=== PATIENT | male | born 1990 | race Caucasian/White ===

== ENCOUNTER 2019-05-03 17:59 | Inpatient (IN) | payer OTHER, MEDICAID ==
[2019-05-03] MEDS ORDERED: ACETAMINOPHEN 650MG/RECT SUPP PR ONE (18:12)
[2019-05-03] MEDS ORDERED: NA CHLORIDE 0.9% 1,000 ML ONE (18:12)
[2019-05-03] MEDS ORDERED: PIPER/TAZO/NS 3.375gm 3.375 GM/100 ML BAG ONE (18:25)
[2019-05-03] MEDS ORDERED: LEVALBUTEROL 1.25 MG/3 ML NEB ONE (18:25)
[2019-05-03] MEDS ORDERED: IPRATROPIUM BROM 0.5MG/2.5ML ONE (18:25)
[2019-05-03] MEDS ORDERED: VANCOMYCIN 750 MG in NA CHLORIDE 0.9% 150 ML IVPB ONE (18:30)
[2019-05-03 18:34] LABS: Arterial Blood Carboxyhemoglob 0.6 % (0-1.5); Blood Gas Oxyhemoglobin 97.7 % (94-97); Blood O2 Saturation 99.3 % (92-98.5)
[2019-05-03 18:37] LABS: Absolute Lymphocytes (CBC) 1.4 K/uL (0.7-4.9); Basophils % 0.1 % (0-1.3); Hematocrit 39.5 % (39.6-49.0); Lymphocytes % 9.1 % (15.3-44.8); MPV 9.8 fL (7.6-11.3); RBC Red Blood Cell Count 4.57 M/uL (4.33-5.43)
[2019-05-03 18:46] LABS: Protime INR 1.55
[2019-05-03 19:09] LABS: ALT/SGPT 18 U/L (12-78); AST/SGOT 44 U/L (15-37); Albumin 2.1 g/dL (3.4-5.0); Alkaline Phosphatase 148 U/L (45-117); BUN Blood Urea Nitrogen 16 mg/dL (7-18); Bicarbonate 29 mmol/L (21-32); Bilirubin Direct 0.3 mg/dL (0-0.2); Bilirubin Total 0.7 mg/dL (0.2-1.0); CKMB Creatine Kinase MB < 1.0 ng/mL (0.3-3.6); Creatine Phosphokinase 89 U/L (39-308); Glucose Level 227 mg/dL (74-106); Lipase 919 U/L (73-393); Magnesium 2.6 mg/dL (1.8-2.4); NT PRO-BNP 614 pg/mL (<125); Phenytoin (Dilantin) Level 19.1 ug/mL (10.0-20.0); Potassium 3.3 mmol/L (3.5-5.1); Protein, Total 7.6 g/dL (6.4-8.2); Sodium Level 153 mmol/L (136-145); Troponin (Emerg Dept Use Only) < 0.02 ng/mL (0.0-0.045)
--- NOTE | 2019-05-03 19:31 | RAD REPORT ---
EXAM DESCRIPTION: CT - Thorax Wo Con - 05/03/2019 7:19 pm CLINICAL HISTORY: sob COMPARISON: December 30 TECHNIQUE: Computed axial tomography of the chest was obtained. Contrast was not requested. All CT scans are performed using dose optimization technique as appropriate and may include automated exposure control or mA/KV adjustment according to patient size. FINDINGS: The evaluation of mediastinum, kenneth and vessels is limited secondary to lack of IV contras t administration. A large left pleural effusion this present with passive left atelectasis. Minimal ground-glass opacity right lung Marked scoliosis. Sullivan rods have been placed. Artifact from the rods result in surrounding luis antonio fact IMPRESSION: Very large left pleural effusion
--- NOTE | 2019-05-03 19:33 | RAD REPORT ---
EXAM DESCRIPTION: Alanna Single View05/03/2019 6:31 pm CLINICAL HISTORY: Shortness of breath COMPARISON: 2014 FINDINGS: Complete opacification left hemithorax Right lung appears clear of acute infiltrate. Marked scoliosis. Sullivan rods have been placed IMPRESSION: Complete opacification of the left hemithorax consistent with very large left pleural e ffusion and passive left lung atelectasis
[2019-05-03 19:42] LABS: Urine Blood NEGATIVE (NEG); Urine Glucose NEGATIVE (NEG); Urine Protein 2+ (NEG); Urine Specific Gravity 1.025 (1.005-1.030)
[2019-05-03 19:49] LABS: Urine Amorphous Sediment 1+ /HPF (NONE SEEN); Urine Bacteria 20-50 /HPF (NONE SEEN); Urine Culture Reflex Order REFLEXED; Urine Mucus 4+ /HPF (NONE SEEN); Urine RBC <5 /HPF (NONE SEEN)
--- NOTE | 2019-05-03 19:59 | EDPHYS ---
Physician Documentation [facility] Name: Gabriel Dhillon Age: 28 yrs Sex: Male : 1990 Arrival Date: 05/03/2019 Time: 18:00 Bed 3 Private MD: ED Physician Ron Evans HPI: 05/03 18:16 This 28 yrs old Male presents to ER via Carried with complaints of Fever, tracee Breathing Difficulty. 18:16 The patient reports fever, that was measured at 103.8 degrees Fahrenheit. Onset: The tracee symptoms/episode began/occurred 2 day(s) ago. Modifying factors: there are no obvious modifying factors. Associated signs and symptoms: Pertinent positives: chills, cough, sinus congestion. Severity of symptoms: At their worst the symptoms were. The patient has experienced similar episodes in the past, several times. Historical: - Allergies: 18:07 No Known Allergies; tw2 - PSHx: 18:07 spleen removed; rods in back; back sugery; tw2 - Immunization history:: Adult Immunizations up to date. - Social history:: Smoking status: Patient/guardian denies using tobacco. - Ebola Screening: : No symptoms or risks identified at this time. ROS: 18:18 Constitutional: Positive for body aches, chills, fatigue. tracee 18:18 Cardiovascular: Positive for palpitations. 18:18 Respiratory: Positive for cough, dyspnea on exertion, shortness of breath, at rest. 18:18 Abdomen/GI: Negative for abdominal pain. 18:18 MS/extremity: Positive for decreased range of motion, contracted. 18:18 Neuro: Positive for altered mental status. Exam: 18:18 Head/Face: Normocephalic, atraumatic. Chest/axilla: Normal chest wall appearance and tracee motion. Nontender with no deformity. No lesions are appreciated. 18:18 Cardiovascular: Rate: tachycardic, Rhythm: regular, Pulses: Pulses are 4+ in bilateral radial, brachial, femoral, popliteal, posterior tibial and and dorsalis pedis arteries.. Heart sounds: normal, Edema: is not appreciated, JVD: is not appreciated. 18:18 Respiratory: moderate respiratory distress is noted, Respirations: accessory muscle tracee usage, that is moderate, Breath sounds: decreased breath sounds, that are moderate, rhonchi, Respiratory rate: 30 Vital Signs: 18:07 Resp 30; Temp 103.8(R); Pulse Ox 85% on R/A; tw2 18:08 BP 110 / 75; Pulse 126; Resp 24; Pulse Ox 100% on Nebulizer Mask; hb 18:13 Weight 33.11 kg (R); tw2 18:15 BP 108 / 77; aa5 19:00 BP 115 / 74; Pulse 130; Resp 18; Temp 100.7(C); Pulse Ox 100% on 4 lpm NC; vc 20:00 BP 106 / 75; Pulse 124; Resp 14; Temp 100.4(C); Pulse Ox 100% on 4 lpm NC; vc 20:40 BP 118 / 78; Pulse 121; Resp 14; Temp 100(C); Pulse Ox 100% on R/A; lp1 22:00 BP 91 / 71; Pulse 108; Resp 14; Pulse Ox 100% on 3 lpm NC; vc 23:00 BP 102 / 75; Pulse 110; Resp 13; Temp 99.5(C); Pulse Ox 100% on 2 lpm NC; vc Procedures: 18:21 Peripheral line: by aseptic technique a peripheral line was placed in the right [facility] external jugular vein. 19:58 Chest tube insertion: the site was prepped using Betadine, in sterile fashion, Tube tracee size: a 16 wallisian chest tube was inserted, introduced in left to pleur-e-vac, dressed with vaseline gauze, foam tape, 4x4s, the patient tolerated the procedure well. MDM: 18:10 Patient medically screened. [facility] 18:20 Data reviewed: vital signs, nurses notes, lab test result(s), EKG, radiologic studies, [facility] plain films. 05/03 18:15 Order name: Basic Metabolic Panel; Complete Time: 19:49 [facility] 05/03 18:15 Order name: CBC with Diff; Complete Time: 19:49 [facility] 05/03 18:15 Order name: LFT's; Complete Time: 19:49 [facility] 05/03 18:15 Order name: Magnesium; Complete Time: 19:49 [facility] 05/03 18:15 Order name: NT PRO-BNP; Complete Time: 19:49 [facility] 05/03 18:15 Order name: PT-INR; Complete Time: 19:49 [facility] 05/03 18:15 Order name: Troponin (emerg Dept Use Only); Complete Time: 19:49 [facility] 05/03 18:15 Order name: Blood Culture Adult (2) [facility] 05/03 18:15 Order name: Ckmb; Complete Time: 19:49 [facility] 05/03 18:15 Order name: CPK; Complete Time: 19:49 [facility] 05/03 18:15 Order name: Lactate; Complete Time: 19:49 [facility] 05/03 18:15 Order name: Lipase; Complete Time: 19:49 [facility] 05/03 18:15 Order name: Procalcitonin; Complete Time: 19:49 [facility] 05/03 18:15 Order name: Ptt, Activated; Complete Time: 19:49 [facility] 05/03 18:15 Order name: XRAY Chest (1 view); Complete Time: 19:49 [facility] 05/03 18:15 Order name: Urine Microscopic Only [facility] 05/03 18:15 Order name: ABG; Complete Time: 19:49 [facility] 05/03 18:15 Order name: Dilantin; Complete Time: 19:49 [facility] 05/03 18:24 Order name: Glucose, Ancillary Testing; Complete Time: 19:49 [facility] 05/03 18:44 Order name: Urine Dipstick--Ancillary (enter results); Complete Time: 19:49 05/03 18:52 Order name: CT Chest Wo Con; Complete Time: 19:49 [facility] 05/03 19:51 Order name: Urine Culture [facility] 05/03 21:03 Order name: XRAY Chest (1 view) mi 05/03 21:24 Order name: Body Fluid Cell Count [facility] 05/03 21:25 Order name: Miscellaneous Test Lab [facility] 05/03 21:25 Order name: Body Fluid Culture [facility] 05/03 21:25 Order name: Acid Fast Bacilli Culture [facility] 05/03 21:25 Order name: Fungal Culture and Stain [facility] 05/03 18:15 Order name: EKG; Complete Time: 18:18 [facility] 05/03 18:15 Order name: Cardiac monitoring; Complete Time: 18:45 [facility] 05/03 18:15 Order name: EKG - Nurse/Tech; Complete Time: 18:45 [facility] 05/03 18:15 Order name: IV Saline Lock; Complete Time: 18:45 [facility] 05/03 18:15 Order name: Labs collected and sent; Complete Time: 18:45 [facility] 05/03 18:15 Order name: O2 Per Protocol; Complete Time: 18:46 [facility] 05/03 18:15 Order name: O2 Sat Monitoring; Complete Time: 18:46 [facility] 05/03 18:15 Order name: Accucheck; Complete Time: 18:43 [facility] 05/03 18:15 Order name: IV Saline Lock - Large Bore; Complete Time: 18:43 [facility] 05/03 18:15 Order name: Urine Dipstick-Ancillary (obtain specimen); Complete Time: 18:43 [facility] 05/03 18:21 Order name: Ceja; Complete Time: 18:46 [facility] 05/03 18:21 Order name: Misc. Order: hob at 30; Complete Time: 18:45 [facility] 05/03 18:21 Order name: Seizure Precautions; Complete Time: 18:45 [facility] Administered Medications: 18:15 Drug: NS 0.9% (30 ml/kg) 30 ml/kg Route: IV; Rate: bolus; Site: right jugular; aa5 18:15 Drug: Tylenol Suppository 15 mg/kg {Note: given 500mg per Dr. Evans.} Route: CO; aa5 18:28 Drug: Xopenex 2.5 mg Route: Inhalation; hb 18:28 Drug: AtroVENT Aerosol 0.5 mg Route: Inhalation; hb 18:30 Drug: Zosyn 3.375 grams Route: IVPB; Infused Over: 60 mins; Site: right jugular; hb 20:00 Drug: vancoMYCIN 20 mg/kg Route: IVPB; Site: right jugular; vc 20:37 Drug: NS 0.9% with KCl 20 mEq/L 1000 ml Route: IV; Rate: 125 ml/hr; Site: right jugular;vc Point of Care Testing: Blood Glucose: 18:12 Blood Glucose: 202 mg/dL; hb Ranges: Critical Glucose Levels:Adult <50 mg/dl or >400 mg/dl <40 mg/dl or >180 mg/dl Disposition: 05/03/19 19:57 Hospitalization ordered by Nasim Granado for Inpatient Admission. Preliminary diagnosis are Dyspnea, Pleural effusion in conditions classified elsewhere - left , large, Atelectasis, Fever, unspecified, Hypoxemia, Sepsis, unspecified organism, Elevated white blood cell count, Hypokalemia, Anemia, unspecified. - Bed requested for Intensive Care Unit. - Status is Inpatient Admission. lp1 - Condition is Fair. - Problem is new. - Symptoms have improved. UTI on Admission? No Signatures: Dispatcher [employer] EDMS Trinh Becker RN RN Ron Evans MD MD cha Calderon, Audri, RN RN aa5 Aide Guerra RN RN lp1 Marlene Arias RN RN Elise Haley, RN RN tw2 Eda Khan RN RN vc Corrections: (The following items were deleted from the chart) 21:32 19:57 Hospitalization Ordered by Nasim Granado for Inpatient Admission. Preliminary diagnosis is Dyspnea; Pleural effusion in conditions classified elsewhere - left , large; Atelectasis; Fever, unspecified; Hypoxemia; Sepsis, unspecified organism; Elevated white blood cell count; Hypokalemia; Anemia, unspecified. Bed requested for Intensive Care Unit. Status is Inpatient Admission. Condition is Fair. Problem is new. Symptoms have improved. UTI on Admission? No. [facility] 23:04 21:32 05/03/2019 19:57 Hospitalization Ordered by Nasim Granado for Inpatient lp1 Admission. Preliminary diagnosis is Dyspnea; Pleural effusion in conditions classified elsewhere - left , large; Atelectasis; Fever, unspecified; Hypoxemia; Sepsis, unspecified organism; Elevated white blood cell count; Hypokalemia; Anemia, unspecified. Bed requested for Intensive Care Unit. Status is Inpatient Admission. Condition is Fair. Problem is new. Symptoms have improved. UTI on Admission? No. mw
--- NOTE | 2019-05-03 19:59 | ER ---
Nurse's Notes [facility] Name: Gabriel Dhillon Age: 28 yrs Sex: Male : 1990 Arrival Date: 05/03/2019 Time: 18:00 Bed 3 Private MD: Diagnosis: Dyspnea;Pleural effusion in conditions classified elsewhere-left , large;Atelectasis;Fever, unspecified;Hypoxemia;Sepsis, unspecified organism;Elevated white blood cell count;Hypokalemia;Anemia, unspecified Presentation: 05/03 18:05 Presenting complaint: Mother states: 2 days fever and we have been giving motrin, we tw2 last gave at 5pm and just today he started with the wheezing and he just cant breathe now. Transition of care: patient was not received from another setting of care. Onset of symptoms was May 03, 2019. Risk Assessment: Do you want to hurt yourself or someone else? Patient reports no desire to harm self or others. Initial Sepsis Screen: Does the patient meet any 2 criteria? RR > 20 per min. Temp <36.0*C (96.8*F)) or > 38.3*C (100.9*F). HR > 90 bpm. Yes Does the patient have a suspected source of infection? If YES to both, name of provider notified: Ron Evans MD. Care prior to arrival: None. 18:05 Method Of Arrival: Carried tw2 18:05 Acuity: JOAQUIN 2 tw2 18:05 Note pt carried by father back to room. tw2 Triage Assessment: 18:05 General: Appears ill. Respiratory: Airway is patent Respiratory effort is labored, tw2 Respiratory pattern is tachypnea Onset: The symptoms/episode began/occurred today, the patient has severe shortness of breath. 18:50 Respiratory: Reports. hb Historical: - Allergies: 18:07 No Known Allergies; tw2 - PSHx: 18:07 spleen removed; rods in back; back sugery; tw2 - Immunization history:: Adult Immunizations up to date. - Social history:: Smoking status: Patient/guardian denies using tobacco. - Ebola Screening: : No symptoms or risks identified at this time. Screenin:13 Abuse screen: Denies threats or abuse. Denies injuries from another. Nutritional hb screening: No deficits noted. Tuberculosis screening: No symptoms or risk factors identified. Fall Risk Total Palumbo Fall Scale indicates High Risk Score (45 or more points). Fall prevention measures have been instituted. Side Rails Up X 2 Frequent Obs/Assessments Occuring Family Present and informed to notify staff if the need to leave the bedside As available patient and family educated on Fall Prevention Program and Strategies. Assessment: 18:04 Reassessment: CODE SEPSIS CALLED. hb 18:07 Reassessment: Dr. Evans at bedside. hb 18:08 General: Appears distressed, ill, Behavior is flat. Pain: Unable to use pain scale. hb FLACC scale score is 0 out of 10. Neuro: Level of Consciousness is awake, Oriented to nonverbal, MR, AOxO at baseline per parents at bedside. Cardiovascular: Heart tones S1 S2 present Capillary refill < 3 seconds Patient's skin is warm and dry. Rhythm is sinus tachycardia. Respiratory: Airway is patent Respiratory effort is labored, Respiratory pattern is tachypnea Breath sounds are coarse bilaterally. GI: No signs and/or symptoms were reported involving the gastrointestinal system. : No signs and/or symptoms were reported regarding the genitourinary system. EENT: No signs and/or symptoms were reported regarding the EENT system. Derm: pale, mottled. Musculoskeletal: No signs and/or symptoms reported regarding the musculoskeletal system. contracted. 19:00 Reassessment: Patient's parents at bedside. vc 19:15 Reassessment: Patient to CT via stretcher with emergency veterinary technician. vc 19:28 Reassessment: Patient back from CT. vc 20:00 General: Appears uncomfortable, ill, slender, emaciated, Behavior is calm. Pain: Unable vc to use pain scale. FLACC scale score is 0 out of 10. Neuro: Level of Consciousness is awake, Oriented to Patient is non-verbal, patient will look towards his parents when his parents call his name, will not make eye contact when or look when spoken to by anyone else.. Cardiovascular: Heart tones S1 S2 present Capillary refill < 3 seconds Patient's skin is warm and dry. Rhythm is sinus tachycardia. Respiratory: Airway is patent Respiratory effort is labored, asymmetrical, Respiratory pattern is tachypnea. GI: No signs and/or symptoms were reported involving the gastrointestinal system. GI: Abdomen is flat, non-distended. : Ceja in place to gravity drainage Urine is cloudy, orange in color. EENT: Oral mucosa is dry. Poor dentition noted. Derm: Skin is mottled, pale. Musculoskeletal: Range of motion: limited in all extremities. 20:37 Reassessment: Patient and/or family updated on plan of care and expected duration. Pain vc level reassessed. Provider at bedside to perform chest tube insertion. 21:14 Reassessment: X ray at bedside to verify placement. vc 21:45 Reassessment: Sample of chest tube fluids collected to be sent to lab. vc 22:00 Reassessment: Patient and/or family updated on plan of care and expected duration. Pain vc level reassessed. Patient has started to regain a pink coloring to his cheeks. 1200 mls output noted to chest drainage device. Reassessment:. 23:07 Reassessment: Bedside report given to МАРИЯ Tabares in ICU. Patient tolerated transfer vc well. Vital Signs: 18:07 Resp 30; Temp 103.8(R); Pulse Ox 85% on R/A; tw2 18:08 BP 110 / 75; Pulse 126; Resp 24; Pulse Ox 100% on Nebulizer Mask; hb 18:13 Weight 33.11 kg (R); tw2 18:15 BP 108 / 77; aa5 19:00 BP 115 / 74; Pulse 130; Resp 18; Temp 100.7(C); Pulse Ox 100% on 4 lpm NC; vc 20:00 BP 106 / 75; Pulse 124; Resp 14; Temp 100.4(C); Pulse Ox 100% on 4 lpm NC; vc 20:40 BP 118 / 78; Pulse 121; Resp 14; Temp 100(C); Pulse Ox 100% on R/A; lp1 22:00 BP 91 / 71; Pulse 108; Resp 14; Pulse Ox 100% on 3 lpm NC; vc 23:00 BP 102 / 75; Pulse 110; Resp 13; Temp 99.5(C); Pulse Ox 100% on 2 lpm NC; vc ED Course: 18:00 Patient arrived in ED. ds1 18:05 Bed in low position. Call light in reach. Adult w/ patient. monitor technician on. Pulse tw2 ox on. NIBP on. 18:06 Triage completed. tw2 18:06 Arm band placed on. tw2 18:09 Initial lab(s) drawn, First set of blood cultures drawn by physician. hb 18:10 Ron Evans MD is Attending Physician. tracee 18:12 Marlene Arias, RN is Primary Nurse. hb 18:12 Inserted saline lock: 18 gauge in right EJ, using aseptic technique. Blood collected. hb 18:25 Second set of blood cultures drawn by lab staff. hb 18:32 XRAY Chest (1 view) In Process Unspecified. EDMS 18:38 Urine collected: Ceja catheter specimen, jeannette colored. aa5 18:40 Ceja cath inserted, using sterile technique, 16 Fr., by wi, balloon inflated, to hb gravity drainage, urine specimen collected. 18:50 EKG done, by ED staff, reviewed by Ron Evans MD. sv 19:21 CT Chest Wo Con In Process Unspecified. EDMS 19:54 Nasim Granado is Hospitalizing Provider. tracee 20:37 Consent signed by mother for chest tube insertion to left lung. lp1 20:44 Assist provider with chest tube insertion with 18 Fr. in left lateral chest wall. Tray lp1 was set up. Attached to To water seal suction, low intermittent Chest tube inserted by Ron Evans MD Placement verified by CXR, fluctuation of fluid, Dressed with Vaseline gauze, foam tape, 4X4s, Patient tolerated well. 21:14 XRAY Chest (1 view) In Process Unspecified. EDMS 23:03 Patient admitted, IV remains in place. vc Administered Medications: 18:15 Drug: NS 0.9% (30 ml/kg) 30 ml/kg Route: IV; Rate: bolus; Site: right jugular; aa5 18:15 Drug: Tylenol Suppository 15 mg/kg {Note: given 500mg per Dr. Evans.} Route: LA; aa5 18:28 Drug: Xopenex 2.5 mg Route: Inhalation; hb 18:28 Drug: AtroVENT Aerosol 0.5 mg Route: Inhalation; hb 18:30 Drug: Zosyn 3.375 grams Route: IVPB; Infused Over: 60 mins; Site: right jugular; hb 20:00 Drug: vancoMYCIN 20 mg/kg Route: IVPB; Site: right jugular; vc 20:37 Drug: NS 0.9% with KCl 20 mEq/L 1000 ml Route: IV; Rate: 125 ml/hr; Site: right jugular;vc Point of Care Testing: Blood Glucose: 18:12 Blood Glucose: 202 mg/dL; hb Ranges: Intake: 23:00 From chest tube lp1 Output: 23:00 Drainage: 1400ml; Total: 1400ml. lp1 23:00 From chest tube lp1 Outcome: 19:57 Decision to Hospitalize by Provider. tracee 23:03 Admitted to ICU accompanied by nurse, family with patient, via stretcher, room 7, with vc oxygen, on monitor, with chart, Other Water seal suction attached to side of bed for transport. 23:03 Condition: improved vc 23:03 Instructed on the need for admit. 23:04 Patient left the ED. lp1 Signatures: Dispatcher [employer] EDStefanie Ordonez, RN RN Ron Mccollum MD MD cha Sanford, Maria A ds1 Tracey Saleh RN RN aa5 Aide Guerra RN RN lp1 Marlene Arias RN RN hb Elise Haley RN RN tw2 Eda Khan RN RN vc Corrections: (The following items were deleted from the chart) 18:08 18:07 Pulse Ox 85% RA; Temp 103.8F Rectal; tw2 tw2 18:47 18:00 Reassessment: Dr. Evans at bedside hb hb 05/04 01:58 00:35 Reassessment: Sample of chest tube fluids collected to be sent to lab lp1 vc
[2019-05-03] MEDS ORDERED: NS KCL 20MEQ 1,000 ML IV ONE (20:05)
[2019-05-03] MEDS ORDERED: LIDOCAINE 1% MPF 5 ML VIAL ONE (20:43)
--- NOTE | 2019-05-03 21:19 | P.HP ---
Certification for Inpatient Patient admitted to: Inpatient With expected LOS: >2 Midnights Practitioner: I am a practitioner with admitting privileges, knowledge of patient current condition, hospital course, and medical plan of care. Services: Services provided to patient in accordance with Admission requirements found in Title 42 Section 412.3 of the Code of Federal Regulations Patient History Date of Service: 05/03/19 Reason for admission: Fever and shortness of breath History of Present Illness: 28-year-old man with a history of developmental delay, static encephalopathy and seizure was brought to the emergency department due to of fever of 2 days duration and shortness of breath of onset today. Family report recording a fever over the past 2 days. Mother was given Motrin without improvement. Family also noted patient was taking more time to eat done before and and progressively becoming more short of breath. The patient is nonverbal and cannot provide any history. Chest x-ray done in the ED demonstrated complete white out of the left lung. CT chest reported large left pleural effusion and compressive atelectasis. The ED physician stated he discussed the case with pulmonology-Dr. Tavares who recommended chest tube placement. Chest tube was placed in the ED and about 1200 mL of serous fluid was drained. The patient also meet criteria was for sepsis with tachycardia, elevated lactic acid and leukocytosis. Blood work also demonstrated multiple electrolyte imbalances. Patient is admitted for further management. Allergies No Known Allergies Allergy (Unverified 02/15/15 11:59) Home Medications: PHENYTOIN ER Cap [Dilantin ER Cap*] 100 mg PO BEDTIME 02/15/15 PHENYTOIN ER Cap [Dilantin ER Cap] 200 mg PO DAILY 02/15/15 Penicillin V Potassium 10 ml PO DAILY 02/15/15 Phenobarbital 64.8 mg PO DAILY 02/15/15 Levetiracetam [Keppra Xr] 1,500 mg PO BID 05/04/19 Omeprazole Magnesium 20 mg PO DAILY 05/04/19 - Past Medical/Surgical History Diabetic: No -: mrsa -: Static encephalopathy -: Seizure disorder -: Global developmental delay -: scoliosis w/ rodding -: feeding tube insertion and removed -: left arm sx - Family History Family History: Reviewed- Non-Contributory - Family History Mother -: Hypertension Notes: borderling diabetes - Social History Alcohol use: No CD- Drugs: No Caffeine use: No Review of Systems is unable to be obtained Physical Examination - Physical Exam General: In no apparent distress, Other (Awake, cachectic) HEENT: Atraumatic, Mucous membr. moist/pink Neck: Supple, JVD not distended Respiratory: Diminished (On the left, clear breath sounds on the right.) Cardiovascular: No edema, Normal S1 S2, Other (Tachycardic) Capillary refill: <2 Seconds Gastrointestinal: Normal bowel sounds, Soft and benign, Non-distended Musculoskeletal: Contractures (Bilateral extremities) Neurological: Other (Nonverbal, awake, move both upper extremities spontaneously.) Urinary: Ceja catheter (Chronic indwelling Ceja.) - Studies Laboratory Data (last 24 hrs) 05/03/19 18:09: PT 18.0 H, INR 1.55, APTT 29.0 05/03/19 18:09: WBC 15.1 H, Hgb 12.3 L, Hct 39.5 L, Plt Count 270 05/03/19 18:09: Sodium 153 H, Potassium 3.3 L, BUN 16, Creatinine 0.46 L, Glucose 227 H, Magnesium 2.6 H, Total Bilirubin 0.7, AST 44 H, ALT 18, Alkaline Phosphatase 148 H, Lipase 919 H Assessment and Plan - Problems (Diagnosis) (1) Sepsis Current Visit: Yes Status: Acute (2) Pleural effusion, left Current Visit: Yes Status: Acute (3) Pneumonia Current Visit: Yes Status: Acute (4) Seizure disorder Current Visit: Yes Status: Chronic (5) Hypernatremia Current Visit: Yes Status: Acute - Plan Admit to ICU. Start aggressive antibiotic therapy: Vancomycin and Zosyn. Follow blood cultures. Pleural fluid analysis and culture ordered. Repeat chest x-ray now and in a.m. Serial lactate Titrate oxygen IV hydration to correct hypernatremia. Correct electrolytes abnormalities including hypocalcemia and hypokalemia. Noted blood glucose is elevated. Will monitor fingerstick glucose Continue home anti seizure medications Consult to pulmonary - Advance Directives Does patient have a Living Will: No Does patient have a Durable POA for Healthcare: No
--- NOTE | 2019-05-03 21:21 | RAD REPORT ---
EXAM DESCRIPTION: Kimt Single View05/03/2019 9:14 pm CLINICAL HISTORY: Chest tube placement IMPRESSION: A left chest tube has been placed with its tip in the upper left hemithorax. A large amount of pleural effusion has been evacuated. No pneumothorax
[2019-05-03 22:51] LABS: Body Fluid Source PLEURAL
[2019-05-03 22:53] LABS: Appearance TURBID (CLEAR); Color of fluid Orange (COLORLESS)
[2019-05-03] MEDS ORDERED: ALBUTEROL 2.5 MG/3 ML NEB SOL NEB PRN (23:02)
[2019-05-03] MEDS ORDERED: ACETAMINOPHEN 500 MG TAB PO PRN (23:02)
[2019-05-03] MEDS ORDERED: ONDANSETRON 4 MG/2 ML VIAL IV PRN (23:02)
[2019-05-03 23:49] LABS: Body Fluid WBC 708 /mm^3
[2019-05-04] MEDS ORDERED: NA CHLORIDE 0.9% 100 ML ONE ×2 (00:47→05:15)
[2019-05-04] MEDS ORDERED: PIPERACIL/TAZO 3.375 GM VIAL IV ONE ×2 (00:47→05:15)
[2019-05-04] MEDS: PIPER/TAZO/NS 3.375gm 3.375 GM/100 ML BAG IVPB SCH ×4 (00:56→16:50)
[2019-05-04] MEDS: INSULIN -REGULAR HUMAN 50 UNIT/0.5 ML ML SQ SCH ×2 (05:25→11:30)
[2019-05-04 05:44] LABS: Absolute Lymphocytes (CBC) 2.1 K/uL (0.7-4.9); Basophils % 0.2 % (0-1.3); Hematocrit 36.4 % (39.6-49.0); MPV 9.7 fL (7.6-11.3)
[2019-05-04 06:04] LABS: ALT/SGPT 14 U/L (12-78); AST/SGOT 29 U/L (15-37); Albumin 1.8 g/dL (3.4-5.0); Alkaline Phosphatase 122 U/L (45-117); BUN Blood Urea Nitrogen 13 mg/dL (7-18); Bicarbonate 28 mmol/L (21-32); Bilirubin Total 0.6 mg/dL (0.2-1.0); Glucose Level 86 mg/dL (74-106); Magnesium 2.3 mg/dL (1.8-2.4); Potassium 3.1 mmol/L (3.5-5.1); Protein, Total 6.2 g/dL (6.4-8.2); Sodium Level 159 mmol/L (136-145)
[2019-05-04] MEDS ORDERED: POTASSIUM PHOS IN 0.9 % NACL 15 MMOL/250 ML BAG IV ONE (06:45)
[2019-05-04] MEDS ORDERED: NACHLORIDE 0.45% 1,000 ML IV SCH (07:00)
[2019-05-04] MEDS ORDERED: D5.45NS W/KCL 20MEQ 20 MEQ/1,000 ML BAG IV SCH (07:00)
[2019-05-04] MEDS: LEVETIRACETAM 1500 MG PO SCH ×2 (07:12→16:57)
--- NOTE | 2019-05-04 07:47 | RAD REPORT ---
EXAM DESCRIPTION: Kimt Single View05/04/2019 6:30 am CLINICAL HISTORY: Chest pain COMPARISON: May 03, 2019 FINDINGS: A left chest tube remains in place without pneumothorax. Small left pleural effusion is present which may be partially loculated. The right lung appears clear of acute infiltrate The scoliosis is re- demonstrated
[2019-05-04] MEDS: PENICILLIN V POTASSIUM PO SCH (07:49)
--- NOTE | 2019-05-04 08:22 | P.CNS ---
Date of Consult: 05/04/19 Reason for Consult: Pleural effusion Chief Complaint: Pleural effusion History of Present Illness: Patient is 28 years of age admitted from the emergency room after having a chest tube placed with shortness of breath and fever acute in onset no prior history of pleural effusion and chest tube was inserted on the left side patient was admitted to the ICU is currently stable chest x-ray has improved significantly patient has a history of cerebral palsy with Sullivan rods no prior history of pleural effusion Allergies No Known Allergies Allergy (Unverified 02/15/15 11:59) Home Medications: PHENYTOIN ER Cap [Dilantin ER Cap*] 100 mg PO BEDTIME 02/15/15 PHENYTOIN ER Cap [Dilantin ER Cap] 200 mg PO DAILY 02/15/15 Penicillin V Potassium 10 ml PO DAILY 02/15/15 Phenobarbital 64.8 mg PO DAILY 02/15/15 Levetiracetam [Keppra Xr] 1,500 mg PO BID 05/04/19 Omeprazole Magnesium 20 mg PO DAILY 05/04/19 - Past Medical/Surgical History Diabetic: No -: mrsa -: Static encephalopathy -: Seizure disorder -: Global developmental delay -: Cerebral Palsy -: scoliosis w/ rodding -: feeding tube insertion and removed -: left arm sx -: splenectomy - Family History Mother Medical History: Hypertension Notes: borderling diabetes - Social History Alcohol use: No CD- Drugs: No Caffeine use: No Place of Residence: Home Review of Systems is unable to be obtained Physical Examination Temp Pulse Resp BP Pulse Ox 100.9 F 82 15 104/70 94 05/04/19 07:00 05/04/19 07:00 05/04/19 07:00 05/04/19 07:00 05/04/19 06:00 General: Alert, In no apparent distress Neck: Supple Respiratory: Clear to auscultation bilaterally, Diminished Cardiovascular: No edema, Regular rate/rhythm, Normal S1 S2 Gastrointestinal: Normal bowel sounds, Soft and benign Musculoskeletal: Other (Contracted extremities minimal movement of his arms more on the right side) Neurological: Other (Bed-bound) Laboratory Data (last 24 hrs) 05/03/19 18:09: PT 18.0 H, INR 1.55, APTT 29.0 05/03/19 18:09: WBC 15.1 H, Hgb 12.3 L, Hct 39.5 L, Plt Count 270 05/03/19 18:09: Sodium 153 H, Potassium 3.3 L, BUN 16, Creatinine 0.46 L, Glucose 227 H, Magnesium 2.6 H, Total Bilirubin 0.7, AST 44 H, ALT 18, Alkaline Phosphatase 148 H, Lipase 919 H - Problems (1) Pleural effusion, left Current Visit: Yes Status: Acute Plan: Patient is 28 years of age with cerebral palsy Nate villasenor admitted with the massive left-sided pleural effusion with some fever and shortness of breath his chest x-ray has improved status post chest tube patient is hypernatremic hypokalemic change to D5 water pleural fluid shows predominant of neutrophils doubt sepsis urinalysis negative for infection patient has trained 1750 of fluid so far vital signs are stable can be transferred to the floor cultures and Gram stains all pending cytology and AFB also ordered change chest tube to water seal Dc chest tube suction
[2019-05-04] MEDS: D5W 1,000 ML with POTASSIUM CL 20 MEQ IV SCH ×2 (08:49)
[2019-05-04] MEDS: VANCOMYCIN 500 MG in NA CHLORIDE 0.9% 100 ML IVPB SCH ×2 (08:58→20:12)
[2019-05-04] MEDS: ENOXAPARIN 30 MG/0.3 ML SQ SCH (08:59)
[2019-05-04] MEDS ORDERED: D5W 1,000 ML IV SCH (09:00)
[2019-05-04] MEDS ORDERED: PHENYTOIN ER 100 MG CAP PO SCH ×2 (09:00→21:00)
[2019-05-04] MEDS ORDERED: VANCOMYCIN 1 GM in NA CHLORIDE 0.9% 250 ML IVPB SCH (09:00)
[2019-05-04] MEDS ORDERED: ENOXAPARIN 40 MG/0.4 ML SQ SCH (09:00)
[2019-05-04] MEDS ORDERED: PHENOBARBITAL 32.4 MG TABLET PO SCH (09:00)
[2019-05-04] MEDS ORDERED: PANTOPRAZOLE 40MG TABLET PO SCH (09:00)
--- NOTE | 2019-05-04 09:00 | EKG ---
Test Date: 2019-05-03 Test Time: 18:46:26 Sock Liner: YAHIR MEASUREMENT RESULTS: Intervals: Rate: 128 OR: 138 QRSD: 94 QT: 298 QTc: 435 [place]: P: 51 OR: 138 QRS: 55 T: -87 INTERPRETIVE STATEMENTS: Sinus tachycardia Possible Left atrial enlargement T wave abnormality, consider inferior ischemia Abnormal ECG Compared to ECG 02/14/2015 14:04:07 T-wave abnormality now present Possible ischemia now present Sinus rhythm no longer present ST (T wave) deviation no longer present Electronically Signed On 05-04-19 08:57:54 FILM EDITOR by Flynn Morocho
[2019-05-04] MEDS ORDERED: ACETAMINOPHEN 650MG/RECT SUPP PR PRN (17:58)
--- NOTE | 2019-05-04 18:02 | PN ---
Date of Progress Note: 05/04/2019 Subjective: The patient seen and examined, chart reviewed, and case discussed with RN and Dr. Tavares. Patient's mother at the bedside. Patient is nonverbal. No acute events overnight. Medications reviewed. Physical Examination: Vital Signs: Temperature 100.9, heart rate 82 , blood pressure 104/70, respirations 15, O2 sat 98% on 2 L nasal cannula. General: Awake, alert, in some mild distress. An ill-appearing male, frail, cachectic. BMI 15. CV: S1, S2. Peripheral pulses present. Respiratory: Diminished breath sounds, worse on the left. Some rhonchi heard. Gastrointestinal: Abdomen is soft, nondistended. Positive bowel sounds. Extremities: No clubbing, cyanosis. Some dependent edema. Neuro: The patient is nonverbal and moves both upper extremities. The patient has contractures of lower extremities. Laboratory Data: Sodium 159, potassium 3.1, chloride 124, CO2 of 28, BUN 13, creatinine 0.23, glucose 86, calcium 7.1, phosphorus 2, magnesium 2.3. Alkaline phosphatase 122, albumin 1.8. WBC 14.8, H and H 11.3 and 36.4, platelets 220, neutrophils 80%. Pleural fluid; wbc's 708, rbc's 20,171, neutrophils 80, lymphocytes 16, mononuclear cells for cytology studies pending. Fluid culture studies pending. Blood culture is also pending at this time. Chest x-ray personally reviewed shows left chest tube in place without pneumothorax. Small left pleural effusion, which may be partially loculated. Right lung appears clear of acute infiltrate, scoliosis re-demonstrated. Assessment And Plan: A 28-year-old male with. 1. Sepsis, likely secondary to pneumonia. We will continue with broad- spectrum intravenous antibiotics. Cultures are pending. White blood cell count is trending down. 2. Large left pleural effusions, now with chest tube. Appreciate Dr. Tavares 's input. Chest tube down to water-seal. Oxygenation has improved. We will wean off as tolerated. We will follow up on cytology studies. 3. Seizure disorder. Phenytoin level is within normal limits. We will continue seizure precautions. 4. Hypernatremia. We will adjust IV fluids. Start on D5W. Continue to monitor closely. 5. Hypophosphatemia. Replace and monitor. 6. Severe protein-calorie malnutrition. Albumin is 1.8. 7. Hypokalemia. Replace and monitor. 8. History of cerebral palsy and global developmental delay. 9. History of severe scoliosis with Sullivan rods. 10. Static encephalopathy. Patient is nonverbal. step down from ICU. We will continue broad-spectrum IV antibiotics. Follow up on culture results. /OBEY Voice ID: [id number] Report ID: [id number] JAILENE
[2019-05-04] MEDS: LEVETIRACETAM 750 MG PO SCH (18:55)
[2019-05-04] MEDS: PHENYTOIN ER 100 MG CAP PO SCH (18:55)
[2019-05-04 20:54] LABS: Potassium 3.1 mmol/L (3.5-5.1)
[2019-05-04] MEDS ORDERED: KCL 20 MEQ/100 mL IVPB 20 MEQ/100 ML BAG IV SCH (22:00)
[2019-05-05] MEDS: PIPER/TAZO/NS 3.375gm 3.375 GM/100 ML BAG IVPB SCH ×3 (00:30→16:36)
[2019-05-05 05:06] LABS: Absolute Lymphocytes (CBC) 1.9 K/uL (0.7-4.9); Basophils % 0.2 % (0-1.3); Lymphocytes % 16.1 % (15.3-44.8); MPV 9.7 fL (7.6-11.3); RBC Red Blood Cell Count 4.12 M/uL (4.33-5.43)
[2019-05-05 05:16] LABS: ALT/SGPT 13 U/L (12-78); AST/SGOT 35 U/L (15-37); Albumin 1.8 g/dL (3.4-5.0); Alkaline Phosphatase 125 U/L (45-117); BUN Blood Urea Nitrogen 7 mg/dL (7-18); Bicarbonate 28 mmol/L (21-32); Bilirubin Total 0.4 mg/dL (0.2-1.0); Glucose Level 104 mg/dL (74-106); Magnesium 2.2 mg/dL (1.8-2.4); Phosphorus 1.4 mg/dL (2.5-4.9); Potassium 3.2 mmol/L (3.5-5.1); Protein, Total 6.2 g/dL (6.4-8.2); Sodium Level 147 mmol/L (136-145)
[2019-05-05 05:19] VITALS: BMI 16.7
[2019-05-05] MEDS ORDERED: POTASSIUM PHOS IN 0.9 % NACL 15 MMOL/250 ML BAG IV ONE (06:00)
[2019-05-05] MEDS: NEXIUM 40 MG PO SCH (06:26)
[2019-05-05] MEDS: PHENOBARBITAL 64.8 MG PO SCH (06:26)
[2019-05-05] MEDS: LEVETIRACETAM 750 MG PO SCH ×2 (06:29→21:55)
[2019-05-05] MEDS: PHENYTOIN ER 100 MG CAP PO SCH ×2 (06:29→21:56)
[2019-05-05] MEDS: D5W 1,000 ML with POTASSIUM CL 20 MEQ IV SCH ×6 (06:31→13:55)
--- NOTE | 2019-05-05 06:39 | RAD REPORT ---
EXAM DESCRIPTION: RAD - Chest Single View - 05/05/2019 6:23 am CLINICAL HISTORY: evaluation of pleural effusion Chest pain. COMPARISON: Chest Single View dated 05/04/2019; Chest Single View dated 05/03/2019; Chest Single View da cadence 05/03/2019; CHEST SINGLE VIEW dated 02/15/2015; Thorax Wo Con dated 05/03/2019 FINDINGS: Portable technique limits examination quality. Left-sided chest tube is in place, unchanged. No measurable pneumothorax. No real changes occurred in the appearance of the left hemithorax since 05/04/2019. Small probably partially loculated left pleu ral effusion persists. The right lung is grossly clear.Prominent scoliosis with hardware in place. Mo derate cardiomegaly. IMPRESSION: Stable chest since 05/04/2019.
[2019-05-05] MEDS: ENOXAPARIN 30 MG/0.3 ML SQ SCH (08:45)
[2019-05-05] MEDS: PENICILLIN V POTASSIUM PO SCH (08:46)
[2019-05-05] MEDS ORDERED: VANCOMYCIN 750 MG in NA CHLORIDE 0.9% 150 ML IVPB SCH (09:00)
[2019-05-05] MEDS ORDERED: BISACODYL 10 MG RECTAL SUPP PR PRN (09:12)
--- NOTE | 2019-05-05 12:32 | P.PN ---
Subjective Date of Service: 05/05/19 Chief Complaint: Pleural effusion Subjective: Improving (Patient is doing well no new complaints hypernatremia resolving minimal output from the chest tube evidence of infection or cancer) Review of Systems is unable to be obtained Physical Examination - Vital Signs Temperature: 99.1 F Blood Pressure: 93/60 Pulse: 111 Respirations: 20 Pulse Ox (%): 95 - Physical Exam General: Alert, Mild distress Respiratory: Clear to auscultation bilaterally, Diminished Cardiovascular: No edema - Studies Microbiology Data (last 24 hrs): 05/03/19 21:19 Body Fluid - Chest Gram Stain - Final Assessment & Plan - Problems (Diagnosis) (1) Pleural effusion, left Current Visit: Yes Status: Acute Plan: Patient admitted with a massive pleural effusion status post chest tube no evidence of infection Gram stain culture negative neutrophilic predominant doubt TB foreign to rule out thromboembolism patient is at high risk of ordered a CT pulmonary angiogram would proceed with an iodine pleurodesis is at risk for aspiration patient has had multiple PEG tubes before currently he eats white count is declining hypernatremia is improving patient is still very hypokalemic L need aggressive potassium replacement including fluid flushes Dc vancomycin continue with Zosyn
--- NOTE | 2019-05-05 13:45 | RAD REPORT ---
EXAM DESCRIPTION: CT - Chest Angio - 05/05/2019 1:32 pm CLINICAL HISTORY: Chest pain. Rule out pulmonary embolus COMPARISON: Thorax Wo Con dated 05/03/2019 TECHNIQUE: CT angiogram of the pulmonary arteries was performed with MIP. All CT scans are performed using dose optimization technique as appropriate and may include automated exposure control or mA/KV adjustment according to patient size. FINDINGS: No evidence of pulmonary thromboembolism. No acute aortic finding demonstrated. The left-sided chest tube is in place with tip in the left medial apex. Moderate left hydropneumothor ax is present. Thoracic scoliosis hardware is in place with a significant scoliosis present. IMPRESSION: No evidence of pulmonary thromboembolism. Left-sided chest tube in place with moderate left hydropneumothorax present.
[2019-05-05] MEDS: POTASSIUM 25 MEQ EFFERV TAB PO SCH ×2 (13:55→21:00)
[2019-05-05] MEDS ORDERED: ALBUTEROL 2.5 MG/3 ML NEB SOL NEB PRN (14:00)
--- NOTE | 2019-05-05 15:58 | PN ---
Date of Progress Note: 05/05/2019 Subjective: The patient seen and examined. Chart reviewed and case discussed with RN. Mother at th e bedside. No acute events overnight. Minimal drainage from the chest tube. Medications: List reviewed. Physical Examination: Vital Signs: Temperature 100.9, heart rate 111, blood pressure 95/67, respirations 21, O2 of 95% on room air. General: Awake alert, nonverbal. Does not follow commands. CV: S1, S2. Sinus tachycardia. Peripheral pulses present. Respiratory: Diminished breath sounds on the left, moving air well on the right. No wheezing or str idor. Patient is tachypneic with use of accessory muscles. Gastrointestinal: Abdomen is soft, nontender, nondistended. Positive bowel sounds. Extremities: No clubbing, cyanosis. Trace pedal edema. Neurologic: Patient is nonverbal. Does not follow commands. Opens eyes spontaneously. Contracture s of the lower extremities. Skin: Chest tube in place left side. Laboratory Data: Sodium 147, potassium 3.2, chloride 115, CO2 of 28, BUN 7, creatinine 0.19, glucose 104, calcium 7. Phosphorus 1.4, alkaline phosphatase 125, albumin 1.8. WBC 11.9, hemoglobin and he matocrit 11.2 and 36, platelets 214. Blood cultures, no growth to date. AFB smear is pending. Body fluid from the chest also shows no growth to date. Urine culture, no growth to date. Chest x-ray p ersonally reviewed shows left-sided chest tube in place, unchanged. No pneumothorax. No changes in appearance since yesterday. Partially loculated left pleural effusion persists. Right lung grossly clear. Prominent scoliosis with hardware in place. Moderate cardiomegaly. Assessment And Plan: A 29-year-old male with: 1.Sepsis secondary to pneumonia. Continue with IV antibiotics. Cultures, no growth to date. White blood cell count is trending down currently 11.9. Still spiking fevers. 2.Large left pleural effusion, status post chest tube. Appreciate Dr. Tavares's input. Minimal dr fields. Patient now on room air. 3.Seizure disorder. We will continue seizure precautions. Continue home medications. 4.Hypernatremia, improving with D5W. We will continue to monitor. 5.Hypokalemia. Replace and monitor. 6.Hypophosphatemia. We will replace and monitor. 7.Severe protein-calorie malnutrition. Albumin is 1.8. Continue with supplementation. 8.History of cerebral palsy and global developmental delay. 9.History of severe scoliosis with Sullivan rods. 10.Static encephalopathy, nonverbal. 11.Deep vein thrombosis prophylaxis, SCDs and Lovenox. Plan: The patient was step-down from ICU yesterday. No beds were available. We will replace electr olytes. Follow up with Pulmonology recommendations. /OBEY Voice ID: [id number] Report ID: [id number]
--- NOTE | 2019-05-05 16:29 | RAD REPORT ---
EXAM DESCRIPTION: RADChest Single View05/05/2019 4:23 pm CLINICAL HISTORY: Clamping of chest tube IMPRESSION: The left chest tube has been clamped. No pneumothorax
[2019-05-05] MEDS ORDERED: KCL 20 MEQ/100 mL IVPB 20 MEQ/100 ML BAG IV SCH (22:00)
[2019-05-06] MEDS: PIPER/TAZO/NS 3.375gm 3.375 GM/100 ML BAG IVPB SCH ×3 (00:06→17:43)
[2019-05-06 06:06] LABS: Absolute Lymphocytes (CBC) 1.6 K/uL (0.7-4.9); Basophils % 0.5 % (0-1.3); Hematocrit 34.9 % (39.6-49.0); RBC Red Blood Cell Count 4.03 M/uL (4.33-5.43)
[2019-05-06 06:24] LABS: ALT/SGPT 14 U/L (12-78); AST/SGOT 31 U/L (15-37); Albumin 1.8 g/dL (3.4-5.0); Alkaline Phosphatase 127 U/L (45-117); BUN Blood Urea Nitrogen 4 mg/dL (7-18); Bicarbonate 28 mmol/L (21-32); Bilirubin Total 0.6 mg/dL (0.2-1.0); Glucose Level 88 mg/dL (74-106); Potassium 3.8 mmol/L (3.5-5.1); Protein, Total 6.1 g/dL (6.4-8.2); Sodium Level 144 mmol/L (136-145)
--- NOTE | 2019-05-06 06:58 | RAD REPORT ---
EXAM DESCRIPTION: RAD - Chest Single View - 05/06/2019 6:30 am CLINICAL HISTORY: Pleural effusion, left-sided chest tube COMPARISON: May 05 TECHNIQUE: AP portable chest image was obtained 0626 hours . FINDINGS: No change in positioning of the chest tube. The pleural opacification along the lateral an d apex portions of the left hemithorax also stable. Patchy lung base opacification is seen. Low lung volumes noted. Right lung field remains clear. Heart size is stable. No identifiable pneumothorax. An anterior pneumothorax can be occult on a portable chest study. IMPRESSION: Stable portable chest exam as detailed.
[2019-05-06] MEDS ORDERED: LIDOCAINE 2% TOP ONE ×2 (08:00)
[2019-05-06] MEDS ORDERED: NA CHLORIDE 0.9% TOP ONE ×2 (08:00)
[2019-05-06] MEDS ORDERED: POVIDONE-IODINE 20 ML, NA CHLORIDE 0.9% 80 ML TOP SCH ×2 (08:00)
[2019-05-06] MEDS ORDERED: FENTANYL CITR 100 MCG/2 ML IV ONE (08:17)
--- NOTE | 2019-05-06 08:25 | P.OP ---
Date of Service: 05/06/19 Findings and Operative Technique Patient is 29 years of age admitted with left-sided pleural effusion with the negative no evidence of infection After discussing with the patient's mother iodine was injected through the chest tube S constituted by the pharmacy an by the protocol The chest tube will be clamped for 4 hr and placed on a section on 40 cm will evaluate tomorrow for chest tube removal
--- NOTE | 2019-05-06 08:29 | P.PN ---
Subjective Date of Service: 05/06/19 Chief Complaint: Pleural effusion Subjective: Improving (Patient is doing well no new complaints no evidence of thromboembolism hypernatremia resolved white count is now normal) Review of Systems is unable to be obtained Physical Examination - Vital Signs Temperature: 97.8 F Blood Pressure: 120/61 Pulse: 102 Respirations: 16 Pulse Ox (%): 93 - Physical Exam General: Alert, Mild distress Respiratory: Diminished (Diminished air entry bilaterally) - Studies Microbiology Data (last 24 hrs): 05/03/19 18:38 Clean Catch Urine [place] Count - Final 05/03/19 18:38 Clean Catch Urine - Final No growth. 05/03/19 21:19 Body Fluid - Chest Gram Stain - Final Assessment & Plan - Problems (Diagnosis) (1) Pleural effusion, left Current Visit: Yes Status: Acute Plan: Patient is status post left-sided chest tube for massive pleural effusion possible infection pleural fluid is negative for infection status post left- sided pleurodesis the prevent recurrence performed today at the bedside vital signs are stable Nutrition needs to be addressed patient will not be able to do a barium swallow as not cooperative consider surgical evaluation for possible open PEG tube he has had PEG tubes before possible removal of the chest tube tomorrow continue with IV is fluids Consider dobhoff unable to make a decision regarding tube feeds vital signs in oxygenation satisfactory
[2019-05-06] MEDS ORDERED: ENOXAPARIN 30 MG/0.3 ML SQ ONE (08:49)
[2019-05-06] MEDS: PENICILLIN V POTASSIUM PO SCH (09:00)
[2019-05-06] MEDS: POTASSIUM 25 MEQ EFFERV TAB PO SCH ×2 (09:00→21:00)
[2019-05-06] MEDS ORDERED: FENTANYL CITR 100 MCG/2 ML ONE (09:26)
[2019-05-06] MEDS ORDERED: DIPHENHYDRAMINE 50 MG/ML VIAL ONE (09:31)
[2019-05-06] MEDS: ENOXAPARIN 30 MG/0.3 ML SQ SCH (09:31)
[2019-05-06] MEDS: LEVETIRACETAM 750 MG PO SCH ×2 (09:32→22:28)
[2019-05-06] MEDS: NEXIUM 40 MG PO SCH (09:32)
[2019-05-06] MEDS: PHENYTOIN ER 100 MG CAP PO SCH ×2 (09:32→22:28)
[2019-05-06] MEDS: PHENOBARBITAL 64.8 MG PO SCH (09:33)
[2019-05-06] MEDS ORDERED: DIPHENHYDRAMINE 50 MG/ML VIAL IV ONE (09:35)
[2019-05-06] MEDS: D5W 1,000 ML with POTASSIUM CL 20 MEQ IV SCH ×2 (09:53)
[2019-05-06] MEDS: ENSURE ENLIVE 237 ML CAN PO SCH ×2 (14:00→21:00)
[2019-05-06] MEDS ORDERED: ACETAMINOPHEN 500 MG TAB PO PRN (16:56)
[2019-05-06] MEDS ORDERED: ONDANSETRON 4 MG/2 ML VIAL IV PRN (16:56)
[2019-05-06] MEDS ORDERED: ACETAMINOPHEN 650MG/RECT SUPP PR PRN (16:57)
[2019-05-06] MEDS ORDERED: BISACODYL 10 MG RECTAL SUPP PR PRN (16:57)
[2019-05-06] MEDS ORDERED: ALBUTEROL 2.5 MG/3 ML NEB SOL NEB PRN (16:59)
--- NOTE | 2019-05-06 17:11 | PN ---
Date of Progress Note: 05/06/2019 Subjective: Patient seen and examined, chart reviewed, and case discussed with RN, Dr. Tavares, and Dr. Cuevas. Patient family not wanting barium swallow study as they state he cannot sit up straight by himself. Does not have his chair. Treatment plan explained to the mother. She is amenable to consulting with Surgery for possible J-tube placement. Medications: List reviewed. Physical Examination: Vital Signs: Temperature 98.6, heart rate 113, blood pressure 116/56, respirations 18, O2 95% on room air. General: Awake, alert, not oriented, nonverbal. CV: S1, S2. Sinus tachycardia. Peripheral pulses present. Respiratory: Diminished breath sounds on the left, moving air well on the right. Patient does not have any stridor or wheezing. Gastrointestinal: Abdomen is soft, nontender, nondistended. Positive bowel sounds. Extremities: No clubbing, cyanosis. Mild pedal edema. Neuro: Patient has contractures of the lower extremities, nonverbal. Laboratory Data: Sodium 144, potassium 3.8, chloride 111, CO2 of 28, BUN 4, creatinine 0.17, glucose 88, calcium 7.3, albumin 1.8. WBC 9.4, H and H 11.3 and 34.9, platelets 244, neutrophils 76%. Blood cultures, no growth to date. AFB smear is pending. The pleural fluid does not show any growth. Chest x-ray personally reviewed shows no change in positioning of chest tube, patchy lung base opacification, low lung volumes. Right lung field remains clear. No identifiable pneumo. Anterior pneumothorax can be occulted on portable chest study, stable portable chest. Assessment: 1. Sepsis secondary to pneumonia. We will continue with IV antibiotics. Cultures are negative. WBC count is now normalized. Patient has been afebrile for 24 hours. 2. Large left pleural effusion, status post chest tube. Appreciate Dr. Tavares's input. Possible tube removal tomorrow. Iodine injected through the chest tube. 3. Dysphagia. Dr. Cuevas with Surgery has been consulted for possible J- tube placement. Patient unable to cooperate with swallow study. Consider placing Dobbhoff for nutrition. 4. Severe protein-calorie malnutrition. Albumin 1.8. We will continue with supplements. 5. Hypernatremia, corrected. Continue with D5W. Continue monitoring. 6. Hypokalemia, replaced. We will continue to monitor. 7. History of cerebral palsy and global developmental delay. 8. History of severe scoliosis with Sullivan rods, stable. 9. Static encephalopathy, nonverbal. 10. Deep venous thrombosis prophylaxis, Lovenox. Plan: Surgical evaluation for J-tube placement, possible chest tube removal in a.m. /OBEY Voice ID: [id number] Report ID: [id number]
[2019-05-06] MEDS ORDERED: FLEET ENEMA ADULT PR ONE (20:37)
--- NOTE | 2019-05-07 00:39 | CON ---
Date of Consultation: 05/06/2019 Reason For Service: Evaluation for gastrostomy or jejunostomy tube placement. History Of Present Illness: This is the case of a 29-year-old patient with history of cerebral palsy , bedridden, came to the ER with fever, found to have a large pleural effusion on the left side that required evacuation in the form of chest tube and even pleurodesis by the pulmonary doctor and the et iology of that effusion is not completely clear, but the primary doctor believed could be due to aspi ration pneumonia. So they are trying to see if put a jejunostomy or gastrostomy tube on this patient since feeding may be causing that as per the primary doctor. The patient cannot give any informatio n. He is bedridden, all the information is obtained from the parents. The parents state that a few years ago he had a gastrostomy tube and within 15 minutes he pulled it out. He has to go to an emerg ent surgery to replace that gastrostomy tube and during that surgery complications arrived and they e russell have to do a splenectomy in this patient. They say it was a difficult complicated surgery. Sinc e then, they have not put a jejunostomy tube, they are afraid he is going to pull it again. He said they have been feeding him nicely and they do not believe the patient is just aspirating from their f eeding. They have not given any consent at this moment anyway for jejunostomy tube or gastrostomy tu be. Allergies: NONE. Medications: Phenytoin, penicillin, omeprazole. Medical Problems: Include encephalopathy, seizure, cerebral palsy, and scoliosis. Past Surgical History: Include multiple feeding tubes placement, laparotomies, splenectomy. Family History: Include hypertension and diabetes. Social History: He does not smoke. He does not drink alcohol. Review of Systems: Unable to be obtained. Physical Examination: General: The patient is awake, is , but he cannot give us any verbalization or repetition of our instructions. Chest: Patient has a left chest tube with a . Abdomen: Soft and depressible. Midline incision. Horizontal multiple incisions consistent with the story that patient's family gave us of multiple surgeries and complications. Extremities: Many contractures present. Laboratory Data: WBC count of 9.4 with hemoglobin of 11.3. INR is 1.55. Chloride is 111. Assessment: 29-year-old patient, as per primary doctor unable to be fed. Primary claimed that they are feeding him properly and that is why they do not believe a G-tube should be placed at this moment for 2 reasons; 1.They believe it is complicated. 2.They believe it is not needed, they are feeding him properly and they do not believe this is aspir ation pneumonia. 3.They believe as soon as this tube is placed in, he is going to pull it out. Plan: I encouraged the family and the primary doctor to sit down once again and discuss the pros and cons of this. They have very good points, not sure exactly up to what point they are accurate. Fro m the surgical standpoint, we suspect a difficult procedure since the patient has multiple emergent s urgeries including in the GI tract. Not impossible to be done, but yes the benefits, alternatives, a nd risks were fully explained to the patient and family, which include infection, bleeding, damage to adjacent structures, seizures, [place], even . At this moment, they do not believe they are ready t o any papers. At this moment, he has been treated for his lung, so I believe there is act mushtaq process going on. We always have time to put this jejunostomy tube or gastrostomy tube. I want to make sure they are very convinced and they give us an informed consent. I did all I can to explai n 2 of them the pros and cons of any intervention. We will discuss with the primary doctor to see if there are any other options that the patient's family feel more comfortable with. ADRIANA/OBEY Voice ID: [id number] Report ID: [id number]
[2019-05-07] MEDS: PIPER/TAZO/NS 3.375gm 3.375 GM/100 ML BAG IVPB SCH ×3 (00:58→16:26)
[2019-05-07 05:09] LABS: Absolute Lymphocytes (CBC) 1.4 K/uL (0.7-4.9); Basophils % 0.2 % (0-1.3); Hematocrit 34.4 % (39.6-49.0); Lymphocytes % 14.5 % (15.3-44.8); MPV 10.2 fL (7.6-11.3)
[2019-05-07 05:23] LABS: ALT/SGPT 12 U/L (12-78); AST/SGOT 34 U/L (15-37); Albumin 1.7 g/dL (3.4-5.0); Alkaline Phosphatase 165 U/L (45-117); BUN Blood Urea Nitrogen 2 mg/dL (7-18); Bicarbonate 28 mmol/L (21-32); Bilirubin Total 0.6 mg/dL (0.2-1.0); Glucose Level 79 mg/dL (74-106); Potassium 3.2 mmol/L (3.5-5.1); Protein, Total 6.1 g/dL (6.4-8.2); Sodium Level 141 mmol/L (136-145)
[2019-05-07] MEDS: D5W 1,000 ML with POTASSIUM CL 20 MEQ IV SCH ×4 (05:24→16:26)
[2019-05-07] MEDS: KCL 20 MEQ/100 mL IVPB 20 MEQ/100 ML BAG IV SCH ×2 (07:29→09:59)
[2019-05-07] MEDS: PENICILLIN V POTASSIUM PO SCH (07:42)
[2019-05-07] MEDS: POTASSIUM 25 MEQ EFFERV TAB PO SCH ×2 (07:42→21:00)
[2019-05-07] MEDS: ENSURE ENLIVE 237 ML CAN PO SCH ×3 (07:43→21:00)
--- NOTE | 2019-05-07 08:05 | RAD REPORT ---
EXAM DESCRIPTION: RAD - Chest Single View - 05/07/2019 6:22 am CLINICAL HISTORY: Left-sided pleural effusion, left-sided chest tube COMPARISON: May 06, May 05 chest films, May 05 CT chest TECHNIQUE: AP portable chest image was obtained 0618 hours . FINDINGS: Left-sided chest tube remains in place with the tip in the medial left apex. No new or enl arging pneumothorax identifiable. Pleural fluid volume appears slightly reduced from prior day imagin g. Interval change is minimal. No new or progressive lung parenchymal process. Heart and vasculature are stable. No acute bony abnor mality seen. No acute aortic findings suspected. IMPRESSION: No change to positioning of the left-side chest tube. No new or enlarging pneumothorax. Pleural fluid volume appears fractionally reduced. The interval change is very minimal.
[2019-05-07] MEDS: PHENYTOIN ER 100 MG CAP PO SCH ×2 (10:00→21:12)
[2019-05-07] MEDS: PHENOBARBITAL 64.8 MG PO SCH (10:00)
[2019-05-07] MEDS: NEXIUM 40 MG PO SCH (10:00)
[2019-05-07] MEDS: LEVETIRACETAM 750 MG PO SCH ×2 (10:00→21:11)
[2019-05-07] MEDS: ENOXAPARIN 30 MG/0.3 ML SQ SCH (10:02)
--- NOTE | 2019-05-07 11:21 | RAD REPORT ---
EXAM DESCRIPTION: RAD - Chest Single View - 05/07/2019 11:14 am CLINICAL HISTORY: Chest tube, shortness of breath COMPARISON: May 07 TECHNIQUE: AP portable chest image was obtained 1110 hours . FINDINGS: Portal expiration chest film was obtained subsequent to clamping of the chest tube. Chest tube has not changed position from earlier imaging. Pleural fluid volume has not changed. No pneumothorax is evident on this examination. Cardiomediastinal silhouette stable from prior imagin g. IMPRESSION: No left side pneumothorax has developed since clamping the chest tube. No change to the chest since the 0618 hr May 07 examination.
--- NOTE | 2019-05-07 12:32 | P.PN ---
Subjective Date of Service: 05/07/19 Chief Complaint: Pleural effusion Subjective: Improving (Patient is doing well no new complaints chest x-ray did not show any pneumothorax despite clamping) Review of Systems is unable to be obtained Physical Examination - Vital Signs Temperature: 98.4 F Blood Pressure: 112/56 Pulse: 120 Respirations: 20 Pulse Ox (%): 95 - Physical Exam General: Alert Respiratory: Clear to auscultation bilaterally, Diminished Cardiovascular: No edema, Regular rate/rhythm - Studies Microbiology Data (last 24 hrs): 05/03/19 21:19 Body Fluid - Chest Gram Stain - Final 05/03/19 21:19 Body Fluid - Chest Culture & Sensitivity - Final No growth. 05/03/19 18:38 Clean Catch Urine [place] Count - Final 05/03/19 18:38 Clean Catch Urine - Final No growth. Assessment & Plan - Problems (Diagnosis) (1) Pleural effusion, left Current Visit: Yes Status: Acute Plan: Patient is doing better chest tube was clamped this morning did not show any evidence of pneumothorax 3 hr after clamping of the chest tube this morning there is no evidence of pleural fluid sepsis cytology is negative patient still has some pleural thickening on the left side possibly an effusion status post iodine pleurodesis vital signs stable labs still shows significant hypokalemia Discharge Plan: Home
--- NOTE | 2019-05-07 12:40 | RAD REPORT ---
EXAM DESCRIPTION: RAD - Barium Swallow Modified - 05/07/2019 12:29 pm CLINICAL HISTORY: Pneumonia/aspiration FINDINGS: laryngeal penetration not cleared with residual honey aspiration no cough with thin and honey pharyngeal residue vallecular, pyriform - with honey and puree, posterior wall, mild with all consist encies profound delay in swallow onset absent swallow reflex Fluoroscopy time 6.3 minutes Twenty-four fluoroscopic spot series obtained
--- NOTE | 2019-05-07 15:48 | PN ---
Date of Progress Note: 05/07/2019 Subjective: Patient seen and examined. Chart reviewed and case discussed with RN and Dr. Tavares as well as Dr. Cuevas. Family yesterday were very apprehensive. Did not want to have anything to do with the G-tube or a gastrostomy tube for feeding. They do not believe that the patient is aspirating, despite clear signs. Today, the father as well as the sister, who is a nurse were also in the family discussion, sister was on the phone. Overall , the patient seems to be stable. Did not have any acute events overnight. Medications: List reviewed. Physical Examination: Vital Signs: Temperature 98.4, heart rate 117, respirations 20, blood pressure 103/58, O2 93% on room air. General: Awake, alert, nonverbal, frail, cachectic male. BMI 16. CV: S1, S2. Sinus tachycardia. Peripheral pulses present. Respiratory: Diminished breath sounds, worse on the left. Right side is clear. No wheezing. Gastrointestinal: Abdomen is soft, nontender, nondistended. Positive bowel sounds. Extremities: No clubbing, cyanosis. Trace pedal edema. Neuro: Contractures of the lower extremities. Laboratory Data: Sodium 141, potassium 3.2, chloride 108, CO2 28, BUN 2, creatinine 0.15, glucose 79, calcium 7.6, alkaline phosphatase 165, AST 34, ALT 12, albumin 1.7. WBC 9.9, H and H 11.2 and 34.4, platelets 291. Blood cultures , no growth to date. Pleural fluid cultures also no growth. Cytology shows no malignant cells. Assessment And Plan: 29-year-old male with: 1. Sepsis secondary to pneumonia. Continue with IV antibiotics. Cultures negative to date, improved significantly. 2. Large left pleural effusion status post chest tubes. Chest x-ray shows no change in positioning to left-sided chest tube. No new or enlarging pneumothorax. Pleural fluid volume appears fractionally reduced. Interval changes very minimal. Appreciate Dr. Tavares's input. Possible tube removal today. 3. Dysphagia. Patient has clear signs of aspiration even while sitting. He can hear gurgling. Family, however, did not believe that he is aspirating, explained to them for over 10 minutes the patient's situation. They state that they have been through PEG tubes and J-tubes previously and have had multiple complications. They are reluctant for any further feeding tubes being placed. They were seen by Dr. Cuevas for possible evaluation yesterday. They also refused Dobhoff for now. They have agreed to modified barium swallow study. They understand that he has risk for aspiration, which can cause recurrent pneumonia. Father felt that this was secondary to influenza, which occurred previous prior to this hospitalization. I explained to him that is not the likely etiology. 4. Severe protein-calorie malnutrition. Albumin 1.8. 5. Hypernatremia, corrected. We will adjust IV fluids. 6. Hypokalemia, replace. Continue to monitor. 7. History of cerebral palsy and global developmental delay. 8. History of severe scoliosis with Sullivan josselin, stable. 9. Stable encephalopathy, nonverbal. 10. Deep venous thrombosis prophylaxis with Lovenox. ADDENDUM: Barium swallow study shows silent aspiration. May be able to take nectar thickened however needs J tube for proper nutrition (patient has BMI of 16). Father has been using turkey baster to shoot water in the back of his throat. Was told to no longer do that due to risk of aspiration. They are still refusing dobhoff tube. Family now willing to undergo J tube or other placement. Spoke with Dr. Tavares - chest tube is out. Patient ok for anesthesia. Contacted surgeon Dr. Cuevas to re-eval patient now that family is agreeable. /OBEY Voice ID: [id number] Report ID: [id number] JAILENE
[2019-05-08] MEDS: PIPER/TAZO/NS 3.375gm 3.375 GM/100 ML BAG IVPB SCH ×3 (00:36→16:29)
[2019-05-08 05:10] LABS: Absolute Lymphocytes (CBC) 1.5 K/uL (0.7-4.9); Basophils % 0.5 % (0-1.3); Hematocrit 33.7 % (39.6-49.0); RBC Red Blood Cell Count 3.93 M/uL (4.33-5.43)
[2019-05-08 05:35] LABS: ALT/SGPT 17 U/L (12-78); AST/SGOT 46 U/L (15-37); Albumin 1.7 g/dL (3.4-5.0); Alkaline Phosphatase 212 U/L (45-117); BUN Blood Urea Nitrogen 3 mg/dL (7-18); Bicarbonate 26 mmol/L (21-32); Bilirubin Total 0.5 mg/dL (0.2-1.0); Glucose Level 89 mg/dL (74-106); Potassium 3.8 mmol/L (3.5-5.1); Protein, Total 6.1 g/dL (6.4-8.2); Sodium Level 137 mmol/L (136-145)
[2019-05-08] MEDS: NEXIUM 40 MG PO SCH (07:30)
[2019-05-08 07:51] LABS: Magnesium 1.8 mg/dL (1.8-2.4); Phosphorus 1.9 mg/dL (2.5-4.9)
--- NOTE | 2019-05-08 07:54 | RAD REPORT ---
EXAM DESCRIPTION: RAD - Chest Single View - 05/08/2019 6:58 am CLINICAL HISTORY: Pleural effusion, chest tube removal COMPARISON: May 07 TECHNIQUE: AP portable chest image was obtained 0652 hours . FINDINGS: Chest tube has been removed. Pleural fluid remains along the lateral aspect of the chest i nto the apex. There are punctate air collections within the pleural space. These have not changed. No evidence for new or enlarging pneumothorax/ hydropneumothorax. Left base parenchymal opacification h as not changed. Right lung field remains clear. Cardiomediastinal silhouette is stable. IMPRESSION: Left-sided chest tube has been removed. No evidence for developing pneumothorax/hydropne umothorax. Remnant left-side pleural fluid collection stable from prior imaging.
[2019-05-08] MEDS: ENSURE ENLIVE 237 ML CAN PO SCH ×3 (08:36→20:24)
[2019-05-08] MEDS: PENICILLIN V POTASSIUM PO SCH (08:37)
[2019-05-08] MEDS: POTASSIUM 25 MEQ EFFERV TAB PO SCH ×2 (08:37→20:24)
[2019-05-08] MEDS: LEVETIRACETAM 750 MG PO SCH ×2 (08:37→17:02)
[2019-05-08] MEDS: PHENOBARBITAL 64.8 MG PO SCH (08:37)
[2019-05-08] MEDS: PHENYTOIN ER 100 MG CAP PO SCH ×2 (08:37→17:02)
[2019-05-08] MEDS: ENOXAPARIN 30 MG/0.3 ML SQ SCH (08:48)
[2019-05-08] MEDS ORDERED: JEVITY 1.5 CAL LIQUID 1,000 ML BOT FT SCH (10:00)
--- NOTE | 2019-05-08 12:53 | PN ---
Date of Progress Note: 05/08/2019 Subjective: Patient seen and examined. Chart reviewed and case discussed with RN and Dr. Cuevas. Patient is doing well. No acute events overnight. Medications: List reviewed. Objective: Vital Signs: Temperature 97.8, heart rate 111, blood pressure 103/ 58, respirations 20, O2 97% on room air. General: Awake, alert, nonverbal, somewhat ill-appearing male, frail, cachectic. BMI 16. CV: S1, S2. Sinus tachycardia. Peripheral pulses present. Respiratory: Diminished breath sounds, worse on the left. Chest tube now removed. No wheezing. Gastrointestinal: Abdomen is soft, nontender, nondistended. Positive bowel sounds. No guarding or rigidity. Midline incision scar is present. Extremities: No clubbing or cyanosis. Trace pedal edema. Neurologic: Nonfocal. Contractures of lower extremities. Laboratory Data: Sodium 137, potassium 3.8, chloride 107, CO2 of 26, BUN 3, creatinine 0.15, glucose 89, calcium 7.3, phosphorus 1.9, magnesium 1.8, albumin 1.7. WBC 11.2, H and H 10.8 and 33.7, platelets 371. Cultures, no growth to date. Chest x-ray shows left-sided chest tube has been removed. No evidence for developing pneumothorax, hydropneumothorax, left-sided pleural fluid collection, stable from prior imaging, personally reviewed. Assessment And Plan: A 29-year-old male with. 1. Sepsis secondary to pneumonia. Chest x-ray slightly improved. Continue with IV antibiotics. Cultures are negative to date. 2. Large left pleural effusion, status post chest tube. Chest tube is now discontinued. Chest x-ray still shows pleural fluid. Appreciate Dr. Tavares' s input. 3. Dysphagia. The patient failed a modified barium swallow study. Family now agreeable to J-tube placement. However, the patient is complicated, has previous scar tissue, hernias, and complications from feeding tube placement. Discussed with Dr. Cuevas. He will reassess the patient and discuss with the family for possible tube placement in a.m. For now, we will place Dobbhoff tube and start feeds. Patient has history of pulling on lines. If he pulls out the Dobhoff, may need to start on TPN and have central line placed. 4. Severe protein-calorie malnutrition. Albumin is less than 2. Patient needs to be started on supplements. 5. Hypernatremia, corrected. 6. Hypophosphatemia. We will replace and monitor. 7. History of cerebral palsy and global developmental delay. 8. History of severe scoliosis with Sullivan rods. 9. Stable encephalopathy, nonverbal. 10. Deep venous thrombosis prophylaxis with Lovenox. Plan: Anticipate J-tube placement for now. We will provide supplemental nutrition via Dobhoff. If that fails, we will switch to TPN. Overall, guarded prognosis. The patient's family is not interested in care and comfort measures at this time. /OBEY Voice ID: [id number] Report ID: [id number] JAILENE
--- NOTE | 2019-05-08 13:49 | RAD REPORT ---
EXAM DESCRIPTION: RAD - Abdomen 1 View (KUB) - 05/08/2019 1:17 pm CLINICAL HISTORY: dobhoff placement COMPARISON: Chest Angio dated 05/05/2019; Chest Single View dated 05/08/2019; Thorax Wo Con dated 020 FINDINGS: Feeding tube has been placed. Tip is in the left upper quadrant of the abdomen. This is mo st likely in the proximal stomach. However, patient has significantly distorted anatomy. Tip of the feeding tube abuts a collection of c ontrast believed to be within the stomach. Placement within the distal most esophagus cannot be exclu ded. If the feeding tube cannot be advanced, re- imaging following injection of a small quantity of contra st via the feeding tube could help determine current positioning.
[2019-05-08] MEDS ORDERED: MAGNESIUM SULFATE 1 gm IVPB 1 GM/100 ML BAG IV ONE (15:53)
[2019-05-08] MEDS: POTASS/SODIUM PHOSPHATE 1 PKT POWD.PACK PO SCH ×3 (16:57→18:13)
[2019-05-08] MEDS ORDERED: PHENYTOIN ER 100 MG CAP PO SCH (17:00)
[2019-05-08] MEDS: D5W 1,000 ML with POTASSIUM CL 20 MEQ IV SCH ×4 (17:44→20:40)
[2019-05-09] MEDS: PIPER/TAZO/NS 3.375gm 3.375 GM/100 ML BAG IVPB SCH ×3 (00:11→17:04)
[2019-05-09] MEDS: LEVETIRACETAM 750 MG PO SCH ×2 (05:01→17:05)
[2019-05-09 05:25] LABS: Absolute Lymphocytes (CBC) 1.7 K/uL (0.7-4.9); Basophils % 0.3 % (0-1.3); Hematocrit 34.2 % (39.6-49.0); MPV 9.2 fL (7.6-11.3); RBC Red Blood Cell Count 4.02 M/uL (4.33-5.43)
[2019-05-09 05:38] LABS: ALT/SGPT 16 U/L (12-78); AST/SGOT 37 U/L (15-37); Albumin 1.8 g/dL (3.4-5.0); Alkaline Phosphatase 240 U/L (45-117); BUN Blood Urea Nitrogen 2 mg/dL (7-18); Bicarbonate 27 mmol/L (21-32); Bilirubin Total 0.3 mg/dL (0.2-1.0); Glucose Level 107 mg/dL (74-106); Magnesium 2.1 mg/dL (1.8-2.4); Phosphorus 2.5 mg/dL (2.5-4.9); Protein, Total 6.5 g/dL (6.4-8.2); Sodium Level 137 mmol/L (136-145)
[2019-05-09] MEDS ORDERED: NEXIUM 40 MG PO SCH (06:00)
[2019-05-09] MEDS ORDERED: PHENOBARBITAL 64.8 MG PO SCH (06:00)
[2019-05-09] MEDS ORDERED: PHENYTOIN ER 100 MG CAP PO SCH (06:00)
[2019-05-09] MEDS: ENSURE ENLIVE 237 ML CAN PO SCH ×3 (09:00→20:34)
[2019-05-09] MEDS: PENICILLIN V POTASSIUM PO SCH (09:00)
[2019-05-09] MEDS: POTASSIUM 25 MEQ EFFERV TAB PO SCH ×2 (09:57→20:35)
[2019-05-09] MEDS: ENOXAPARIN 30 MG/0.3 ML SQ SCH (09:58)
--- NOTE | 2019-05-09 15:44 | PN ---
Date of Progress Note: 05/09/2019 Subjective: Patient seen and examined, chart reviewed, and case discussed with RN. No acute events overnight. Patient tolerating the Dobbhoff feeds, have been started. Plan is tentatively for J-tube placement in a.m. Medications: List reviewed. Physical Examination: Vital Signs: Temperature 97.9, heart rate 98, blood pressure 96/54, respirations 18, O2 97% on room air. General: Asleep, but arousable. No acute distress. Frail, cachectic male. BMI 16.7. CV: S1, S2. Regular rate and rhythm. Peripheral pulses present. Respiratory: Moving air well bilaterally. No wheezing. Gastrointestinal: Abdomen is soft, nontender, nondistended. Positive bowel sounds. Extremities: No clubbing, cyanosis. Trace pedal edema. Neurologic: Nonfocal. Lower extremity contractures, nonverbal patient. Laboratory Data: Sodium 137, potassium 4, chloride 105, CO2 of 27, BUN 2, creatinine 0.16, glucose 107, calcium 7.5. Phosphorus 2.5, magnesium 2.1. Albumin 1.8. WBC 11.1, H and H 10.9 and 34.2, platelets 541, neutrophils 74%. Cultures, no growth to date. KUB shows feeding tube placed, tip in the left upper quadrant of the abdomen, most likely proximal stomach, however, there is some distorted anatomy and there is contrast where the feeding tube abuts. Assessment And Plan: 29-year-old male with: 1. Sepsis secondary to pneumonia. X-ray is improved. We will continue with IV antibiotics. Appreciate Dr. Tavares's input. Cultures are negative to date. 2. Large left pleural effusion, status post chest tube, now removed. Continue to monitor. 3. Dysphagia, currently feedings through Dobbhoff. Tentative plan for J-tube placement by Surgery. 4. Severe protein-calorie malnutrition. Albumin less than 2. Continue with high-protein feeds. 5. Hypernatremia, corrected. 6. Hypophosphatemia, replace and monitor. 7. History of cerebral palsy and global developmental delay. 8. History of severe scoliosis with Sullivan rods. 9. Stable encephalopathy. 10. Deep venous thrombosis prophylaxis with Lovenox. ADDENDUM: Spoke with Dr. Cuevas. J tube equipment not available at this facility. Family given option of waiting for equipment to be ordered or be transferred to higher level of care. Family wishes to be transferred. Transfer initiated to [facility]. /OBEY Voice ID: [id number] Report ID: [id number] MTDD
[2019-05-09] MEDS: PHENYTOIN ER 100 MG CAP PO SCH (17:06)
[2019-05-09] MEDS: D5W 1,000 ML with POTASSIUM CL 20 MEQ IV SCH ×4 (18:00→21:56)
--- NOTE | 2019-05-09 19:27 | PN ---
Date of Progress Note: 05/09/2019 Diagnoses: Pleural effusion, history of chest tube. Possible aspiration pneumonia. Subjective: I was called once again by Dr. Taylor and the family, this time they believe they are terrell dy for the proposal of an open jejunostomy tube placement. They understand his condition, understand the consequence in the long maintenance of that, understand the importance of the flushing this cath eter after every use, avoiding the patient to pull that by accident, which could be life threatening in some situations. The primary doctor once again discussed that as we discussed with the patient be fore with benefits, alternatives, and risks including, but not limited to infection, bleeding, damage to adjacent structures, and complication, AK, even . He understands this may not relieve any s ymptoms. He might need more than one surgical intervention and understand also the importance of radha ntenance, again cannot be stressed enough. He represents some challenges for our office. He has mul tiple incisions for complications of the same tube placement in the past in another institution, but the as per primary doctors that they believe that feeding is not an option for him and they do not liriano ve any other option at this moment and the jejunostomy tube. We may have to put the gastrostomy tube . During the case we noticed that the ostomy is not possible although we trying to feed him as part possible from the stomach to once again minimize aspiration. Case was booked for tomorrow. Objective: Chest: At this moment chest is clear. Abdomen: Soft and depressible. Assessment And Plan: We advised him went to the floor, to make sure the patient is n.p.o. after midn ight. ADRIANA/OBEY Voice ID: [id number] Report ID: [id number]
[2019-05-09 21:50] VITALS: BP 93/58; TEMP 98
[2019-05-10 00:24] VITALS: O2SAT 96
[2019-05-10] MEDS ORDERED: PENICILLIN V K 250 MG TABLET FT SCH (09:00)
--- NOTE | 2019-05-10 19:19 | PN ---
Date of Progress Note: 05/09/2019 Mr. Dhillon is a 29-year-old patient with failure to thrive. They asked me to do a jejunostomy tube on this patient due to inability to swallow. Patient was booked for a Friday for surgical intervention to place a jejunostomy tube. Today as a part of the preoperative note and checkup list, we went to the OR and having to be that the utility accounts director was there, the nursing sintering plant supervisor was there, the surgica l tech was there, the news assistant was there and all trying to find out to see if he has an ____ have jejunostomy tube. I witnessed because to an OR to endoscopy suite, to a materia l management, to the ER, to a day surgery, to the ICU and there is no tube available at this moment. Even worse, we are not sure exactly what are we going to get it done. So, I notify the primary doct or in this case, Dr. Taylor to inability for us to proceed that since the patient needs that as soon a s possible. Then, I suggested them for transfer the patient to an institution where they can provide this kind of service at this moment until the OR can order this jejunostomy tube for the future. Wi th that on the table, then I am going to cancel this case and suggest this patient to be transferred then and we notified the proper office to make sure those tubes are ready to be used in ca se we need it. ADRIANA/OBEY Voice ID: [id number] Report ID: [id number]
--- NOTE | 2019-05-11 01:14 | DS ---
Date of Discharge: 05/09/2019 Consultants: 1.Dr. Cuevas with General Surgery. 2.Dr. Tavares with Pulmonology. Procedures: The patient had chest tube placement in the ER on 05/03/2019. Procedures on 05/06/[address] Tavares, iodine injection into the chest tube per protocol. Pathology report, pleural fluid. Cytology shows no malignant cells. Admitting Diagnoses: 1.Sepsis. 2.Left pleural effusion. 3.Aspiration pneumonia. 4.Seizure disorder. 5.Hyponatremia. 6.Cerebral palsy. Discharge Diagnoses: 1.Sepsis secondary to pneumonia, improved. 2.Large left pleural effusion, status post chest tube followed by subsequent removal. 3.Dysphagia, failed barium swallow study, requiring J-tube placement to be done at [facility]. 4.Severe protein-calorie malnutrition, albumin less than 2. 5.Hypernatremia, corrected. 6.Hypophosphatemia, replaced. 7.History of cerebral palsy and global developmental delay. 8.History of severe scoliosis with Sullivan josselin. 9.History of stable encephalopathy at baseline. Hospital Course: Patient is a 29-year-old male with past medical history of seizure disorder, cerebr al palsy, developmental delay, who is bed bound, comes in with sepsis. Patient was found to have lef t large pleural effusion with compressive atelectasis. Chest tube was placed in the ER, 1200 mL of s erous fluid was drained. This fluid was taken for evaluation, was orange in color, turbid, 7-8 WBCs, 20,000 RBCs, 80 neutrophils. Fluid culture did not grow any bacteria. The patient's cytology study did not show any malignant cells. His UA did show some urine bacteria. He was started on IV antibi otics broad spectrum. [place] [address]. Initially, the patient responded well to IV antibiotics, his pleural effusion improved. He was seen by Dr. Tavares with Pulmonology, was managed with chest tube. Patient's chest tube was subsequently removed. He d id have iodine injected as well to prevent pneumo. Patient overall did well as the etiology of this pneumonia is considered aspiration. Patient was made n.p.o.; however, family continued to give him f eedings including water feeds through shooting in the back of the throat. The father was told not to repeat this as the patient is aspirating. Patient was seen by speech therapy. Family in itially refused the barium swallow study; however, after concerns again that were brought up, the chanel bourne's family finally agreed to barium swallow study. He was found to have severe aspiration and he was kept n.p.o. patient again refused Dobhoff tube multiple times. However, finally agreed to placi ng Dobhoff tube for temporary nutrition. Patient is very cachectic with BMI of 16, and has low prote in levels. Dr. Cuevas with General Surgery was consulted for PEG tube placement. Patient does hav e a complicated history of previous PEG tube placements with complications and subsequent removals. Patient has had multiple admissions, had a splenectomy and other multiple complications and surgeries in the abdomen. Patient's family was then finally amenable to the jejunostomy tube placement and th guillaume understood the risks and benefits. However, speaking with Dr. Cuevas, the appropriate equipment was not available at this facility. The patient's family was given the choice of awaiting _ placement for the equipment and arrival before procedure or to be transferred to facility as this w as more urgent and the patient's nutrition status depended on this procedure. He was then transferre d to [facility] for jejunostomy tube placement. Patient was then transferred to [facility] and was i n a stable condition. Activity: Fall precautions. Diet: Dobhoff tube feeds for now with high-protein. For physical exam findings, please see progress note dictated on the day of discharge. Total time spent transferring the patient was 45 minutes. /OBEY Voice ID: [id number] Report ID: [id number]
== END 2019-05-09 23:00 | disposition short-term general hospital (02) | DRG 871 ==
LOC: ER 17:59 → ERHOLD 21:26 → 3RD-ICU 22:45 → 2ND 05-05 09:40
PROVIDERS: ADMIT Internal Medicine; ATTEND Family Medicine
PROC: 0T9B70Z Drainage of Bladder with Drainage Device, Via Natural or Artificial Opening (ICD-10-PCS; principal; 2019-05-03)
PROC: 0W9B30Z Drainage of Left Pleural Cavity with Drainage Device, Percutaneous Approach (ICD-10-PCS; 2019-05-03)
PROC: 05HP33Z Insertion of Infusion Device into Right External Jugular Vein, Percutaneous Approach (ICD-10-PCS; 2019-05-03)
PROC: 0WPBX0Z Removal of Drainage Device from Left Pleural Cavity, External Approach (ICD-10-PCS; 2019-05-07)
DX: A41.9 Sepsis, unspecified organism (principal); J18.9 Pneumonia, unspecified organism; E43 Unspecified severe protein-calorie malnutrition; J90 Pleural effusion, not elsewhere classified; E87.0 Hyperosmolality and hypernatremia; G93.49 Other encephalopathy; R64 Cachexia; Z68.1 Body mass index [BMI] 19.9 or less, adult; G40.909 Epilepsy, unspecified, not intractable, without status epilepticus; E83.39 Other disorders of phosphorus metabolism; E87.6 Hypokalemia; R13.10 Dysphagia, unspecified; R62.7 Adult failure to thrive
CPT/HCPCS: 36415; 51702; 71045; 71250; 71275; 74018; 74230; 80048; 80053; 80076; 80185; 80202; 81003; 81015; 82550; 82553; 82805; 82947; 83605; 83690; 83735; 83880; 84100; 84132; 84145; 84295; 84443; 84484; 85025; 85610; 85730; 87015; 87040; 87070; 87086; 87088; 87102; 87116; 87206; 88108; 88305; 89050; 92610; 92611; 93005; 96374; 96375; 99285; J1200; J1650; J2543; J3010; J3475; J7030; Q9967